=== PATIENT | female | born 1995 | race American Indian/Alaskan Native ===

== ENCOUNTER 2017-10-16 01:38 | Emergency (ER) | payer SELFPAY ==
[2017-10-16 01:55] VITALS: BP 129/76
[2017-10-16] MEDS ORDERED: NACL 0.9% 1000 ML 1,000 ML IV ONE (01:56)
[2017-10-16] MEDS ORDERED: TYLENOL PO ONE (01:58)
[2017-10-16] MEDS ORDERED: TYLENOL ONE (01:59)
== END 2017-10-17 04:15 | disposition left against medical advice (07) ==
LOC: ED 01:38
DX: R11.0 Nausea (principal); Z53.21 Procedure and treatment not carried out due to patient leaving prior to being seen by health care provider
CPT/HCPCS: 93005; 93010

== ENCOUNTER 2020-10-05 11:40 | Outpatient (CLI) | payer MEDICAID ==
[2020-10-05 12:20] VITALS: BP 123/73
--- NOTE | 2020-10-05 16:17 | Ultrasound Report ---
OBSTETRICAL ULTRASOUND HISTORY: Leaking fluid. FINDINGS: Limited obstetrical ultrasound was performed. A single viable intrauterine in the breech position has heart tones of 130 bpm. Amniotic fluid index is at the lower range of normal at 7.4 cm. The largest vertical pocket is left u pper quadrant measuring 2.8 cm. IMPRESSION: 1. Viable intrauterine . 2. Amniotic fluid index 7.4 cm. Signer Name: Rell Trammell MD Signed: 10/05/2020 4:12 PM Workstation Name: [id number]
== END 2020-10-05 16:22 | disposition home or self-care (01) ==
LOC: APU 11:40 → TRG 11:40 → LD 14:41 → APU 14:47 → TRG 16:22
PROVIDERS: ATTEND Obstetrics & Gynecology
DX: O42.92 Full-term premature rupture of membranes, unspecified as to length of time between rupture and onset of labor (principal); Z3A.39 39 weeks gestation of pregnancy
CPT/HCPCS: 59025; 76815